=== PATIENT | female | born 1935 | race Caucasian/White ===

== ENCOUNTER → 2016-11-25 | Outpatient (REF) | payer MEDICARE ==
[2016-11-25 11:33] LABS: MEAN CORPUSCULAR HEMOGLOBIN 30.6 pg (27.0-33.0); MEAN CORPUSCULAR HGB CONC 35.2 g/dl (32.0-36.5); MEAN CORPUSCULAR VOLUME 86.9 fl (80.0-96.0); RED CELL DISTRIBUTION WIDTH 13.5 % (11.5-14.5); WHITE BLOOD COUNT 6.6 K/mm3 (4.0-10.0)
[2016-11-25 12:09] LABS: ALBUMIN 3.9 GM/DL (3.2-5.2); ALBUMIN/GLOBULIN RATIO 1.18 (1.00-1.93); BILIRUBIN,TOTAL 0.4 MG/DL (0.2-1.0); CALCIUM LEVEL 9.6 MG/DL (8.8-10.2); CREATININE FOR GFR 1.05 MG/DL (0.55-1.02); TOTAL PROTEIN 7.2 GM/DL (6.4-8.2)
== END ==
LOC: M SFHCLERA 07:52
PROVIDERS: ATTEND Family Medicine
DX: E11.9 Type 2 diabetes mellitus without complications (principal)

== ENCOUNTER → 2016-12-06 | Outpatient (REF) | payer MEDICARE | LOC: M SMT 13:19 | PROVIDERS: ATTEND Nurse Practitioner Family | DX: N39.0 Urinary tract infection, site not specified (principal) ==

== ENCOUNTER → 2016-12-10 | Outpatient (CLI) | payer MEDICARE ==
--- NOTE | 2016-12-10 12:43 | REP ---
RENAL ULTRASOUND: HISTORY: Recurrent urinary tract infection. The right kidney is normal in echogenicity. The right kidney measures 5.5 cm in transverse by 5.3 cm in AP by 11.1 cm in cephalocaudal dimensions. There is mild hydronephrosis. The left kidney is increased in echogenicity. The left kidney measures 4.7 cm in transverse by 5.5 cm in AP by 10.7 cm in cephalocaudal dimensions. A focus of increased echogenicity is present in the lower pole of the left kidney. This measures 1 x 1 x 1.1 cm and may represent and angiomyolipoma. There is no hydronephrosis. There are no filling defects in the urinary bladder. IMPRESSION: 1. Mild right hydronephrosis. 2. There is a 1.1 cm focus of increased echogenicity in the lower pole of the left kidney that may represent an angiomyolipoma. CT of the kidneys may be helpful for further evaluation. Signed by Hernando Alvarado MD 12/10/2016 12:54 P
== END ==
LOC: M SMT 11:12
PROVIDERS: ATTEND Nurse Practitioner Family
DX: N39.0 Urinary tract infection, site not specified (principal)

== ENCOUNTER → 2016-12-16 | Outpatient (CLI) | payer MEDICARE ==
[~2016-12-16] MED LIST: ISOVUE-370 76% 100ML VIAL (Q9967) As Ordered ONE
--- NOTE | 2016-12-16 17:04 | REP ---
CT abdomen and pelvis without and with IV contrast: Without oral contrast. History: Abnormal renal ultrasound December 10, 2016 showed mild right-sided hydronephrosis and an echogenic focus in the lower pole of the left kidney, 1.[address] contrast dose: 100 ml of Isovue [address] findings: Preliminary digital concrete mixer operator radiograph shows clips in the right upper quadrant. Bowel gas pattern is normal. The lung bases are clear on axial CT images. The liver and the spleen are normal in size and homogeneous in texture. No adrenal lesion is seen on either side. No pancreatic abnormality is noted. The gallbladder is surgically absent. There is no evidence of hydronephrosis by CT. The kidneys enhance symmetrically. They are morphologically intact except for the presence of a tiny nonenhancing cyst in the upper pole of the left kidney, which measures 4 mm. In addition, there is a nonenhancing homogeneous fat density nodule in the lower pole of the left kidney, 10 mm in diameter. 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 No other renal mass lesion is observed. Normal caliber aorta is seen. There is a ventral hernia at the level of the umbilicus transmitting omental and mesenteric fat. There is left colonic diverticulosis without CT evidence of diverticulitis. Small and large bowel loops are otherwise unremarkable. No bony destructive lesion is seen. Impression: 1. Post cholecystectomy. 2. 10 mm fat containing benign nodule lower pole left kidney consistent with lipoma or angiomyolipoma. 3. Left colonic diverticulosis. 4. Periumbilical ventral hernia transmitting abdominal fat. Signed by Kerwin Perry MD 12/17/2016 10:15 A
== END ==
LOC: M RAD 16:05
PROVIDERS: ATTEND Nurse Practitioner Family
DX: N28.89 Other specified disorders of kidney and ureter (principal); K57.30 Diverticulosis of large intestine without perforation or abscess without bleeding; K43.9 Ventral hernia without obstruction or gangrene; Z90.49 Acquired absence of other specified parts of digestive tract
CPT/HCPCS: 74178; Q9967

== ENCOUNTER → 2017-01-24 | Outpatient (REF) | payer MEDICARE ==
[2017-01-24 22:21] LABS: MICROSCOPIC INDICATED? NO (NO)
== END ==
LOC: M LABSMT 15:11
PROVIDERS: ATTEND Nurse Practitioner Family
DX: R30.0 Dysuria (principal)

== ENCOUNTER → 2017-02-07 | Outpatient (REF) | payer MEDICARE | LOC: M LABSMT 07:53 | PROVIDERS: ATTEND Nurse Practitioner Family | DX: N39.0 Urinary tract infection, site not specified (principal) ==

== ENCOUNTER → 2017-02-21 | Outpatient (REF) | payer MEDICARE | LOC: M SMT 12:47 | PROVIDERS: ATTEND Nurse Practitioner Family | DX: R35.0 Frequency of micturition (principal) | CPT/HCPCS: 51798; 81001; 87088; 87186; G0463 ==

== ENCOUNTER → 2017-02-28 | Outpatient (REF) | payer MEDICARE ==
[2017-02-28 12:13] LABS: ALBUMIN 3.8 GM/DL (3.2-5.2); ALBUMIN/GLOBULIN RATIO 1.23 (1.00-1.93); ALKALINE PHOSPHATASE 76 U/L (45-117); ALT/SGPT 47 U/L (12-78); ANION GAP 11 MEQ/L (8-16); AST/SGOT 11 U/L (15-37); BILIRUBIN,TOTAL 0.4 MG/DL (0.2-1.0); BLOOD UREA NITROGEN 18 MG/DL (7-18); CALCIUM LEVEL 8.7 MG/DL (8.8-10.2); CARBON DIOXIDE LEVEL 24 MEQ/L (21-32); CHLORIDE LEVEL 105 MEQ/L (98-107); CHOLESTEROL LEVEL 248 MG/DL (<200); CREATININE FOR GFR 0.94 MG/DL (0.55-1.02); GLOMERULAR FILTRATION RATE > 60.0 (>39); GLUCOSE, FASTING 126 MG/DL (83-110); POTASSIUM SERUM 4.9 MEQ/L (3.5-5.1); SODIUM LEVEL 140 MEQ/L (136-145); TOTAL PROTEIN 6.9 GM/DL (6.4-8.2); TRIGLYCERIDES LEVEL 290 MG/DL (<150)
[2017-02-28 12:31] LABS: MEAN CORPUSCULAR HEMOGLOBIN 28.4 pg (27.0-33.0); MEAN CORPUSCULAR HGB CONC 32.1 g/dl (32.0-36.5); MEAN CORPUSCULAR VOLUME 88.5 fl (80.0-96.0); RED CELL DISTRIBUTION WIDTH 13.4 % (11.5-14.5); WHITE BLOOD COUNT 7.6 K/mm3 (4.0-10.0)
== END ==
LOC: M SFHCLERA 07:45
PROVIDERS: ATTEND Nurse Practitioner Family
DX: E03.9 Hypothyroidism, unspecified (principal); E11.9 Type 2 diabetes mellitus without complications; N39.0 Urinary tract infection, site not specified
CPT/HCPCS: 80053; 80061; 84443; 85027; 87086; G0463

== ENCOUNTER → 2017-03-07 | Outpatient (REF) | payer MEDICARE ==
[2017-03-07 18:27] LABS: VITAMIN B12 LEVEL 941 PG/ML
[2017-03-07 18:28] LABS: FOLATE > 24.0 NG/ML
== END ==
LOC: M SFHCLERA 14:37
PROVIDERS: ATTEND Family Medicine
DX: N39.0 Urinary tract infection, site not specified (principal); E11.9 Type 2 diabetes mellitus without complications; R53.83 Other fatigue; Z79.899 Other long term (current) drug therapy

== ENCOUNTER → 2017-03-07 | Outpatient (REF) | payer MEDICARE | LOC: M SMT 16:21 | PROVIDERS: ATTEND Nurse Practitioner Family | DX: E11.9 Type 2 diabetes mellitus without complications (principal); I10 Essential (primary) hypertension; R53.83 Other fatigue | CPT/HCPCS: 82306; 82607; 82746; 83036; 87086; G0463 ==

== ENCOUNTER → 2017-03-21 | Outpatient (CLI) | payer MEDICARE ==
--- NOTE | 2017-03-21 17:13 | REP ---
MRI brain without contrast followed by with contrast: History: Vertigo. Gadolinium enhancement dose: 12.2 mL of intravenous ProHance. Technique: Axial, coronal and sagittal imaging planes utilized. T1 and T2-weighted scans obtained in the usual fashion with and without fat saturation. Sequences include spin-echo, fast spin echo, and diffusion weighted sequences. MRI findings: No bony calvarial destructive lesion is seen. No intraorbital abnormalities observed. There is no MR evidence of significant paranasal sinus disease. There is diffuse moderate cerebral atrophy. There is no evidence of intracranial hemorrhage. Diffusion weighted scans show no evidence of restricted diffusion to suggest acute ischemia. Craniocervical junction and upper cervical cord are normal in appearance. There is some hyperostosis frontalis interna noted bilaterally. This is a normal variant. There are small vessel atherosclerotic changes in the periventricular white matter bilaterally. There is no evidence of intracranial mass lesion, infarct or extra-axial fluid collection. Post contrast enhanced images show enhancement of normal vasculature. No abnormal contrast enhancement is appreciated. Impression: Diffuse moderate atrophy. Small vessel changes. No acute intracranial lesion seen. Signed by Kerwin Perry MD 03/21/2017 06:20 P
== END ==
LOC: M RAD 13:02
PROVIDERS: ATTEND Family Medicine
DX: R42 Dizziness and giddiness (principal)
CPT/HCPCS: 70553; A9576

== ENCOUNTER → 2017-04-18 | Outpatient (CLI) | payer MEDICARE ==
--- NOTE | 2017-04-18 16:38 | REP ---
Soft-tissue ultrasound left neck. History: Tender enlarged mobile lymph node left anterior cervical chain 0.5 cm in size. The patient reports that it is less tender today and no longer palpable. Scanning in the area of the previously noted tenderness shows no evidence of cystic change, soft tissue mass or adenopathy. Scanning lateral to the trachea from the mandible inferior is performed. No mass lesion or adenopathy is seen. Impression: No cyst, mass or adenopathy seen in the soft tissues of the left neck. Signed by Kerwin Perry MD 04/18/2017 04:49 P
== END ==
LOC: M LRY 14:03
PROVIDERS: ATTEND Family Medicine
DX: R59.1 Generalized enlarged lymph nodes (principal)
CPT/HCPCS: 51798; 76536; G0463

== ENCOUNTER → 2017-06-20 | Outpatient (REF) | payer MEDICARE ==
[~2017-06-20] MED LIST changes: +AMLO2.5T PO; +ATEN25TA PO; +HUMA75VL SC; -ISOVUE-370 76% 100ML VIAL (Q9967) As Ordered ONE; +LEVO75TA4 PO; +METH1TAB2 PO
== END ==
LOC: M SMT 13:03
PROVIDERS: ATTEND Nurse Practitioner Women's Health
DX: N39.0 Urinary tract infection, site not specified (principal)
CPT/HCPCS: 81001; 87086; G0463

== ENCOUNTER → 2017-07-26 | Outpatient (REF) | payer MEDICARE ==
[2017-07-26 11:37] LABS: MEAN CORPUSCULAR HEMOGLOBIN 29.2 pg (27.0-33.0); MEAN CORPUSCULAR HGB CONC 33.3 g/dl (32.0-36.5); MEAN CORPUSCULAR VOLUME 87.7 fl (80.0-96.0); RED CELL DISTRIBUTION WIDTH 13.5 % (11.5-14.5); WHITE BLOOD COUNT 9.4 K/mm3 (4.0-10.0)
[2017-07-26 11:38] LABS: INR 0.92
[2017-07-26 11:54] LABS: ALBUMIN 3.8 GM/DL (3.2-5.2); ALBUMIN/GLOBULIN RATIO 1.15 (1.00-1.93); ALKALINE PHOSPHATASE 75 U/L (45-117); ALT/SGPT 53 U/L (12-78); ANION GAP 10 MEQ/L (8-16); AST/SGOT 14 U/L (15-37); BILIRUBIN,TOTAL 0.5 MG/DL (0.2-1.0); BLOOD UREA NITROGEN 23 MG/DL (7-18); CALCIUM LEVEL 9.7 MG/DL (8.8-10.2); CARBON DIOXIDE LEVEL 27 MEQ/L (21-32); CHLORIDE LEVEL 104 MEQ/L (98-107); GLOMERULAR FILTRATION RATE > 60.0 (>39); GLUCOSE, FASTING 121 MG/DL (83-110); POTASSIUM SERUM 4.3 MEQ/L (3.5-5.1); SODIUM LEVEL 141 MEQ/L (136-145); TOTAL PROTEIN 7.1 GM/DL (6.4-8.2)
[2017-07-26 12:02] LABS: FREE T4 1.08 NG/DL (0.76-1.46)
== END ==
LOC: M SFHCLERA 10:05
PROVIDERS: ATTEND Family Medicine
DX: Z01.818 Encounter for other preprocedural examination (principal); I10 Essential (primary) hypertension; E03.9 Hypothyroidism, unspecified; Z51.81 Encounter for therapeutic drug level monitoring; Z79.899 Other long term (current) drug therapy
CPT/HCPCS: 80053; 82043; 83036; 84439; 84443; 85027; 85610; G0463

== ENCOUNTER 2017-08-03 08:38 | Day surgery (SDC) | payer MEDICARE ==
[~2017-08-03] VITALS: Ht 157.5 cm; Wt 62.1 kg
[~2017-08-03 08:38] MED LIST changes: +ACETAMINOPHEN 325 MG TAB PO PRN; -AMLO2.5T PO; +BSS with VANC/TOB/EPI for EYE CASES IR ONE; +CYCLOPENTOLATE 2% OPHTH SOLN 2ML BTL OS ONE; +HEALON DUET (HEALON 10MG/ML 0.55ML & HEALON ENDOCOAT 30MG/ML 0.85ML) As Ordered ONE; +LIDOCAINE 1% SDV 5 ML VIAL As Ordered ONE; +LIDOCAINE 3.5 % 1ML OPHTH TOPICAL GEL OU ONE; +OFLOXACIN 0.3 % (OCUFLOX) OPTH SOL 5ML OS ONE; +PHENYLEPHRINE 2.5% OPHTH SOL 2ML OS ONE; +POVIDONE-IODINE 5% OPHTH PREP SOL 30ML As Ordered ONE; +PROPARACAINE 0.5% OPHTH SOL 15ML OS PRN; +TRIAMCINOLONE PRES FR 40 MG/ML 1ML(TRIESENCE)(OR EYE ONLY)(J3300 PER 1MG) As Ordered ONE; +TROPICAMIDE 1% OPHTH SOLN 2ML OS ONE
[2017-08-03] MEDS ORDERED: LR 500 ML IV ONE (09:00)
[2017-08-03] MEDS ORDERED: MIDAZOLAM INJ 2 MG/2 ML VIAL (J2250) As Ordered ONE (09:45)
[2017-08-03] MEDS ORDERED: fentaNYL 100 MCG/2 ML INJECTION (J3010) As Ordered ONE (09:45)
[2017-08-03] MEDS ORDERED: CEFUROXIME 1MG/0.1ML INTRACAMERAL INJ As Ordered ONE (10:01)
[2017-08-03 10:30] VITALS: BP 186/80
[2017-08-03] MEDS ORDERED: AcetaZOLAMIDE 500 MG ER CAP PO ONE (10:30)
[2017-08-03] MEDS ORDERED: TRIMETHOBENZAMIDE 300 MG CAP PO PRN (10:30)
[2017-08-03] MEDS ORDERED: KETOROLAC 0.5% OPHTH SOLN OS ONE (10:30)
--- NOTE | 2017-08-03 11:46 | RO ---
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 PROCEDURE: Phacoemulsification with intraocular lens implantation of Hoya, power 18 diopter, and also placement of a Malyugin ring, which was 7 mm. SURGEON: Danielle Huff MD NEW HOME SALES CONSULTANT: None. ANESTHESIA: Monitored anesthesia care (MAC). COMPLICATIONS: None. DESCRIPTION OF PROCEDURE: Patient was brought to the operating room, laid in supine position. The left eye was prepped and draped in a sterile fashion for ophthalmic surgery, and a lid speculum was placed. Sideport incision was then made, and EndoCoat was injected into the anterior chamber. This was followed by a temporal clear corneal incision with a 2.5 mm keratome and placement of the Malyugin ring to dilate the pupil with the help of the introducer. Capsulorrhexis was then done, followed by hydrodissection and phacoemulsification in a [id number] method within the capsular bag. Excess cortical material was then aspirated and Healon injected into the capsular bag, followed by insertion of the intraocular lens. Excess viscoelastic was aspirated but, prior to that, Malyugin ring was removed. Wound was hydrated. Intracameral moxifloxacin and sub-Tenon triamcinolone were given at the end of the case. Patient was returned to the recovery room after removing the speculum. Edited: [facility] 08/05/2017 1515
== END 2017-08-03 10:49 | disposition home or self-care (01) ==
LOC: M SDC 08:38
PROVIDERS: ATTEND Ophthalmology
DX: H26.9 Unspecified cataract (principal); H57.03 Miosis; T88.59XD Other complications of anesthesia, subsequent encounter; I49.9 Cardiac arrhythmia, unspecified; I10 Essential (primary) hypertension; E10.9 Type 1 diabetes mellitus without complications; E03.9 Hypothyroidism, unspecified; K21.9 Gastro-esophageal reflux disease without esophagitis; R06.83 Snoring; G47.9 Sleep disorder, unspecified; Z88.0 Allergy status to penicillin; Z88.1 Allergy status to other antibiotic agents; Z88.8 Allergy status to other drugs, medicaments and biological substances; Z79.899 Other long term (current) drug therapy; Z79.4 Long term (current) use of insulin; Z90.710 Acquired absence of both cervix and uterus
CPT/HCPCS: 66982; J2250; J3010; J3300; V2632

== ENCOUNTER → 2017-08-10 | Outpatient (REF) | payer MEDICARE ==
[~2017-08-10] MED LIST changes: -ACETAMINOPHEN 325 MG TAB PO PRN; +AMLO2.5T PO; -BSS with VANC/TOB/EPI for EYE CASES IR ONE; -CYCLOPENTOLATE 2% OPHTH SOLN 2ML BTL OS ONE; -HEALON DUET (HEALON 10MG/ML 0.55ML & HEALON ENDOCOAT 30MG/ML 0.85ML) As Ordered ONE; -LIDOCAINE 1% SDV 5 ML VIAL As Ordered ONE; -LIDOCAINE 3.5 % 1ML OPHTH TOPICAL GEL OU ONE; -OFLOXACIN 0.3 % (OCUFLOX) OPTH SOL 5ML OS ONE; -PHENYLEPHRINE 2.5% OPHTH SOL 2ML OS ONE; -POVIDONE-IODINE 5% OPHTH PREP SOL 30ML As Ordered ONE; -PROPARACAINE 0.5% OPHTH SOL 15ML OS PRN; -TRIAMCINOLONE PRES FR 40 MG/ML 1ML(TRIESENCE)(OR EYE ONLY)(J3300 PER 1MG) As Ordered ONE; -TROPICAMIDE 1% OPHTH SOLN 2ML OS ONE
[2017-08-10 18:38] LABS: YEAST LIKE CELL URINE AUTO MODERATE
== END ==
LOC: M LABSMT 14:12
PROVIDERS: ATTEND Family Medicine
DX: R30.0 Dysuria (principal)

== ENCOUNTER → 2017-08-16 | Outpatient (REF) | payer MEDICARE ==
[2017-08-16 12:23] LABS: CALCIUM OXALATE CRYSTALS SMALL
[2017-08-16 12:43] LABS: MICROSCOPIC INDICATED? NO (NO)
== END ==
LOC: M SFHCLERA 10:25
PROVIDERS: ATTEND Family Medicine
DX: R35.0 Frequency of micturition (principal)
CPT/HCPCS: 81001; 87086; G0463

== ENCOUNTER 2017-08-24 09:51 | Day surgery (SDC) | payer MEDICARE ==
[~2017-08-24 09:51] MED LIST changes: +ACETAMINOPHEN 325 MG TAB PO PRN; -AMLO2.5T PO; +CYCLOPENTOLATE 2% OPHTH SOLN 2ML BTL OD ONE; +LIDOCAINE 3.5 % 1ML OPHTH TOPICAL GEL OU ONE; +MIDAZOLAM INJ 2 MG/2 ML VIAL (J2250) As Ordered ONE; +OFLOXACIN 0.3 % (OCUFLOX) OPTH SOL 5ML OD ONE; +PHENYLEPHRINE 2.5% OPHTH SOL 2ML OD ONE; +TROPICAMIDE 1% OPHTH SOLN 2ML OD ONE; +fentaNYL 100 MCG/2 ML INJECTION (J3010) As Ordered ONE
[2017-08-24] MEDS ORDERED: LR 1,000 ML IV SCH (10:15)
[2017-08-24] MEDS ORDERED: AMLO2.5T PO (11:19)
[2017-08-24] MEDS ORDERED: TRIAMCINOLONE PRES FR 40 MG/ML 1ML(TRIESENCE)(OR EYE ONLY)(J3300 PER 1MG) As Ordered ONE (12:25)
[2017-08-24] MEDS ORDERED: LIDOCAINE 1% SDV 5 ML VIAL As Ordered ONE (12:25)
[2017-08-24] MEDS ORDERED: MOXIFLOXACIN IN BSS 0.25MG/0.25ML INTRACAMERAL INJ (OR EYE ONLY)(J2280) As Ordered ONE (12:25)
[2017-08-24] MEDS ORDERED: POVIDONE-IODINE 5% OPHTH PREP SOL 30ML As Ordered ONE (12:25)
[2017-08-24] MEDS ORDERED: HEALON DUET (HEALON 10MG/ML 0.55ML & HEALON ENDOCOAT 30MG/ML 0.85ML) As Ordered ONE (12:25)
[2017-08-24 13:35] VITALS: BP 180/81
[2017-08-24] MEDS ORDERED: AcetaZOLAMIDE 500 MG ER CAP As Ordered ONE (13:46)
[2017-08-24] MEDS ORDERED: AcetaZOLAMIDE 500 MG ER CAP PO ONE (14:00)
[2017-08-24] MEDS ORDERED: TRIMETHOBENZAMIDE 300 MG CAP PO PRN (14:00)
--- NOTE | 2017-08-24 22:14 | RO ---
DATE OF PROCEDURE: 08/24/2017 PREPROCEDURE DIAGNOSIS: Cataract of right eye. POSTPROCEDURE DIAGNOSIS: Cataract of right eye. PROCEDURE: Femtosecond laser and phacoemulsification of the intraocular lens with lens implantation right eye. Intraocular lens power used was Hoya, model 250, power 18 diopter. SURGEON: Danielle Huff MD MARKING ROOM SUPERVISOR: None. ANESTHESIA: Local IV standby. FINDINGS: Cataract of right eye. COMPLICATIONS: None. DESCRIPTION OF PROCEDURE: The patient was brought to the operating room and laid in supine position. A lid speculum was placed, and patient was brought under the femtosecond laser. After the satisfactory placement of the patient interface, primary incision, secondary incision, and arcuate incisions with lens fragmentation was done without any complication per plan. The patients interface was then removed and lid speculum removed. Patient was placed under the microscope. The eye was prepped and draped in a sterile fashion for ophthalmic surgery. Lid speculum was placed. The secondary incision was opened, and EndoCoat was injected into the anterior chamber. The temporal clear corneal incision was then opened and capsulorrhexis removed, followed by hydrodissection. This was followed by phacoemulsification of the lens within the capsular bag. Cortical material was then aspirated, and Healon was injected into the capsular bag. Intraocular lens was then placed. Excess Healon was aspirated. Wound was hydrated. The lid speculum was removed, and patient was returned to the recovery room in stable condition. Addendum: Femtosecond laser was not able to make all the incisions according to plan.
== END 2017-08-24 13:40 | disposition home or self-care (01) ==
LOC: M SDC 09:51
PROVIDERS: ATTEND Ophthalmology
DX: H26.9 Unspecified cataract (principal); E11.9 Type 2 diabetes mellitus without complications; I10 Essential (primary) hypertension; E03.9 Hypothyroidism, unspecified; N39.0 Urinary tract infection, site not specified; T88.59XD Other complications of anesthesia, subsequent encounter; I49.9 Cardiac arrhythmia, unspecified; K21.9 Gastro-esophageal reflux disease without esophagitis; R06.83 Snoring; Z88.0 Allergy status to penicillin; Z88.1 Allergy status to other antibiotic agents; Z88.8 Allergy status to other drugs, medicaments and biological substances; Z79.899 Other long term (current) drug therapy; Z79.4 Long term (current) use of insulin; Z90.710 Acquired absence of both cervix and uterus; Z78.0 Asymptomatic menopausal state
CPT/HCPCS: 66984; J2250; J2280; J3010; J3300; V2632

== ENCOUNTER → 2017-09-20 | Outpatient (REF) | payer MEDICARE ==
[~2017-09-20] MED LIST changes: -ACETAMINOPHEN 325 MG TAB PO PRN; +AMLO2.5T PO; -CYCLOPENTOLATE 2% OPHTH SOLN 2ML BTL OD ONE; -LIDOCAINE 3.5 % 1ML OPHTH TOPICAL GEL OU ONE; -MIDAZOLAM INJ 2 MG/2 ML VIAL (J2250) As Ordered ONE; -OFLOXACIN 0.3 % (OCUFLOX) OPTH SOL 5ML OD ONE; -PHENYLEPHRINE 2.5% OPHTH SOL 2ML OD ONE; -TROPICAMIDE 1% OPHTH SOLN 2ML OD ONE; -fentaNYL 100 MCG/2 ML INJECTION (J3010) As Ordered ONE
[2017-09-21 12:45] LABS: MEAN CORPUSCULAR HEMOGLOBIN 29.1 pg (27.0-33.0); MEAN CORPUSCULAR HGB CONC 33.2 g/dl (32.0-36.5); MEAN CORPUSCULAR VOLUME 87.7 fl (80.0-96.0); RED CELL DISTRIBUTION WIDTH 14.5 % (11.5-14.5); WHITE BLOOD COUNT 10.6 10^3/uL (4.0-10.0)
[2017-09-21 12:48] LABS: CBCMD ORDERED? YES (YES)
[2017-09-21 13:20] LABS: EOSINOPHILS 2 % (0-5)
[2017-09-23 00:06] LABS: Lyme Disease IgG/IgM Antibodie <0.91 ISR (0.00-0.90); Lyme Disease IgM Ab Quantitati <0.80 index (0.00-0.79)
== END ==
LOC: M SFHCLERA 19:39
PROVIDERS: ATTEND Physician Assistant
DX: S30.861A Insect bite (nonvenomous) of abdominal wall, initial encounter (principal); W57.XXXA Bitten or stung by nonvenomous insect and other nonvenomous arthropods, initial encounter; R21 Rash and other nonspecific skin eruption; X58.XXXA Exposure to other specified factors, initial encounter; Y92.9 Unspecified place or not applicable; Y93.9 Activity, unspecified
CPT/HCPCS: 85007; 85027; 86617; G0463

== ENCOUNTER → 2017-11-01 | Outpatient (REF) | payer MEDICARE ==
[2017-11-01 11:21] LABS: MEAN CORPUSCULAR HGB CONC 33.1 g/dl (32.0-36.5); MEAN CORPUSCULAR VOLUME 87.7 fl (80.0-96.0); PLATELET COUNT, AUTOMATED 330 10^3/uL (150-450); RED CELL DISTRIBUTION WIDTH 14.1 % (11.5-14.5)
== END ==
LOC: M SFHCLERA 10:05
PROVIDERS: ATTEND Family Medicine
DX: R00.2 Palpitations (principal); E11.9 Type 2 diabetes mellitus without complications; I10 Essential (primary) hypertension

== ENCOUNTER → 2017-11-15 | Outpatient (REF) | payer OTHER | LOC: M SFHCLERA 13:04 | DX: R30.0 Dysuria (principal) | CPT/HCPCS: 87088; 87186 ==

== ENCOUNTER → 2017-12-01 | Outpatient (CLI) | payer OTHER | LOC: M RAD 11:32 | DX: I10 Essential (primary) hypertension (principal) | CPT/HCPCS: 71046 ==

== ENCOUNTER → 2017-12-26 | Outpatient (REF) | payer OTHER | LOC: M SFHCLERA 08:23 | DX: C44.712 Basal cell carcinoma of skin of right lower limb, including hip (principal) | CPT/HCPCS: 88305 ==

== ENCOUNTER → 2018-02-08 | Outpatient (REF) | payer OTHER | LOC: M SFHCLERA 09:24 | DX: R30.0 Dysuria (principal) | CPT/HCPCS: 87186 ==

== ENCOUNTER 2018-03-09 09:00 | Emergency (ER) | payer OTHER ==
[2018-03-09] MEDS: ACETAMINOPH W/CODEINE #3 TAB UD PO (09:40)
== END 2018-03-09 11:13 | disposition home or self-care (01) ==
LOC: M ED 09:00
DX: M16.11 Unilateral primary osteoarthritis, right hip (principal); M51.17 Intervertebral disc disorders with radiculopathy, lumbosacral region; I10 Essential (primary) hypertension; Z79.82 Long term (current) use of aspirin; Z79.4 Long term (current) use of insulin; Z79.899 Other long term (current) drug therapy; Z88.8 Allergy status to other drugs, medicaments and biological substances; Z88.1 Allergy status to other antibiotic agents; Z88.0 Allergy status to penicillin
CPT/HCPCS: 72110

== ENCOUNTER → 2018-03-20 | Outpatient (REF) | payer OTHER ==
[2018-03-20 12:16] LABS: ESTIMATED AVERAGE GLUCOSE 189 MG/DL (60-110); HEMOGLOBIN A1c 8.2 %
[2018-03-20 12:28] LABS: ANION GAP 8 MEQ/L (8-16); BLOOD UREA NITROGEN 19 MG/DL (7-18); CALCIUM LEVEL 9.5 MG/DL (8.8-10.2); CARBON DIOXIDE LEVEL 28 MEQ/L (21-32); CHLORIDE LEVEL 104 MEQ/L (98-107); CREATININE FOR GFR 0.69 MG/DL (0.55-1.30); GLOMERULAR FILTRATION RATE > 60.0 (>32); GLUCOSE, FASTING 166 MG/DL (70-100); POTASSIUM SERUM 4.7 MEQ/L (3.5-5.1); SODIUM LEVEL 140 MEQ/L (136-145)
== END ==
LOC: M SFHCLERA 10:10
DX: I10 Essential (primary) hypertension (principal); E11.9 Type 2 diabetes mellitus without complications
CPT/HCPCS: 83036

== ENCOUNTER → 2018-05-08 | Outpatient (REF) | payer OTHER | LOC: M SFHCLERA 09:07 | DX: R30.0 Dysuria (principal) | CPT/HCPCS: 87088; 87186 ==

== ENCOUNTER → 2018-07-04 | Outpatient (REF) | payer OTHER ==
[2018-07-04 12:05] LABS: ESTIMATED AVERAGE GLUCOSE 163 MG/DL (60-110); HEMOGLOBIN A1c 7.3 %
[2018-07-04 12:15] LABS: CREATININE, URINE 37.3 MG/DL; MALB URINE SIEMENS 30.8 MG/L; MAU/CREAT RATIO 82.5 MCG/MG (0.0-30.0)
== END ==
LOC: M SFHCLERA 09:01
DX: E11.9 Type 2 diabetes mellitus without complications (principal)
CPT/HCPCS: 83036

== ENCOUNTER → 2018-10-18 | Outpatient (REF) | payer OTHER | LOC: M SFHCLERA 10:10 | DX: R30.0 Dysuria (principal) | CPT/HCPCS: 87186 ==

== ENCOUNTER → 2018-12-04 | Outpatient (REF) | payer MEDICARE ==
[~2018-12-04] MED LIST changes: +ACET30TAB PO; +ALEV220C2 PO; -AMLO2.5T PO; +AMLO2.5T3 PO; +ASPI81TA85 PO; +CAPS0.1C2 EX; +METH-855 PO; -METH1TAB2 PO
[2018-12-04 20:52] LABS: BLOOD UREA NITROGEN 23 MG/DL (7-18); CALCIUM LEVEL 9.4 MG/DL (8.8-10.2); CARBON DIOXIDE LEVEL 28 MEQ/L (21-32); CHLORIDE LEVEL 104 MEQ/L (98-107); CREATININE FOR GFR 0.75 MG/DL (0.55-1.30); GLOMERULAR FILTRATION RATE > 60.0 (>32); GLUCOSE, FASTING 107 MG/DL (70-100); POTASSIUM SERUM 4.9 MEQ/L (3.5-5.1); SODIUM LEVEL 140 MEQ/L (136-145)
[2018-12-04 20:54] LABS: HEMOGLOBIN A1c 7.4 %
== END ==
LOC: M SFHCLERA 15:33
PROVIDERS: ATTEND Family Medicine
DX: I10 Essential (primary) hypertension (principal); E11.9 Type 2 diabetes mellitus without complications; E03.9 Hypothyroidism, unspecified
CPT/HCPCS: 80048; 83036; 84443; G0463

== ENCOUNTER → 2019-01-15 | Outpatient (REF) | payer MEDICARE ==
[2019-01-15 17:28] LABS: BASO # 0.1 10^3/uL (0.0-0.2); BASO % 0.4 % (0.0-1.0); EOS # 0.3 10^3/uL (0.0-0.50); EOS % 2.5 % (0.0-3.0); HEMATOCRIT 41.2 % (36.0-47.0); HEMOGLOBIN 13.5 g/dl (12.0-15.5); LYMPH # 2.5 10^3/uL (1.5-4.5); LYMPH % 21.1 % (24.0-44.0); MEAN CORPUSCULAR HEMOGLOBIN 27.6 pg (27.0-33.0); MEAN CORPUSCULAR HGB CONC 32.8 g/dl (32.0-36.5); MEAN CORPUSCULAR VOLUME 84.1 fl (80.0-96.0); MONO % 8.4 % (0.0-5.0); NEUTROPHILS % 67.4 % (36.0-66.0); PLATELET COUNT, AUTOMATED 377 10^3/uL (150-450); WHITE BLOOD COUNT 11.9 10^3/uL (4.0-10.0)
[2019-01-15 18:06] LABS: ALBUMIN 3.6 GM/DL (3.2-5.2); ALT/SGPT 36 U/L (12-78); BILIRUBIN,TOTAL 0.4 MG/DL (0.2-1.0); BLOOD UREA NITROGEN 24 MG/DL (7-18); C REACTIVE PROTEIN QUANTITATIV 3.92 MG/DL (0.00-0.30); CARBON DIOXIDE LEVEL 28 MEQ/L (21-32); CHLORIDE LEVEL 105 MEQ/L (98-107); CREATININE FOR GFR 0.73 MG/DL (0.55-1.30); GLOMERULAR FILTRATION RATE > 60.0 (>32); GLUCOSE, FASTING 115 MG/DL (70-100); POTASSIUM SERUM 4.5 MEQ/L (3.5-5.1); SODIUM LEVEL 141 MEQ/L (136-145); TOTAL PROTEIN 7.5 GM/DL (6.4-8.2)
[2019-01-15 18:28] LABS: ERYTHROCYTE SEDIMENTATION RATE 55 mm/hr (0-30)
[2019-01-18 00:07] LABS: ANA (HEP2) Negative (.); Lyme Disease IgG/IgM Antibodie <0.91 ISR (0.00-0.90); Lyme Disease IgM Ab Quantitati <0.80 index (0.00-0.79)
== END ==
LOC: M SFHCLERA 10:36
PROVIDERS: ATTEND Family Medicine
DX: M79.10 Myalgia, unspecified site (principal); I10 Essential (primary) hypertension; L98.9 Disorder of the skin and subcutaneous tissue, unspecified
CPT/HCPCS: 80053; 85025; 85652; 86038; 86140; 86617; 87086; G0463

== ENCOUNTER → 2019-01-22 | Outpatient (REF) | payer MEDICARE | LOC: M SFHCLERA 09:04 | PROVIDERS: ATTEND Dermatology | DX: C44.329 Squamous cell carcinoma of skin of other parts of face (principal) ==

== ENCOUNTER → 2019-01-29 | Outpatient (CLI) | payer MEDICARE ==
[~2019-01-29] MED LIST changes: +ACET-716 PO; -ACET30TAB PO
--- NOTE | 2019-01-30 03:57 | REP ---
Clinical: Myalgia and lower back pain. Technique: AP, lateral, bilateral oblique and coned-down views of the lumbosacral spine. Comparison: 03/09/2018 Findings: Advanced age-related osteopenia and multilevel degenerative disc osteophyte complexes are appreciated. Findings include osteophytosis, endplate sclerosis and mild disc space narrowing and have not changed from prior examination. Grade 1 anterolisthesis at the L4-5 level again noted and unchanged. No acute fracture / compression injury or subluxation identified. Impression: Advanced chronic stable osteopenia and multilevel degenerative changes. No acute fracture / compression injury or subluxation. Electronically Signed by Best Espinoza MD 01/30/2019 03:50 A
--- NOTE | 2019-01-30 04:42 | REP ---
Clinical: Myalgia. Technique: Neutral and frog lateral views of the right hip. Findings: Moderate degenerative changes include joint space narrowing with subtle cortical irregularity to the acetabular rim. No periarticular calcifications or loose bodies identified. No acute fracture dislocation. Impression: Moderate degenerative changes. Electronically Signed by Best Espinoza MD 01/30/2019 04:33 A
== END ==
LOC: M LRY 09:26
PROVIDERS: ATTEND Family Medicine
DX: M43.16 Spondylolisthesis, lumbar region (principal); M85.88 Other specified disorders of bone density and structure, other site; M51.36 Other intervertebral disc degeneration, lumbar region; M25.78 Osteophyte, vertebrae; M16.11 Unilateral primary osteoarthritis, right hip; M79.10 Myalgia, unspecified site
CPT/HCPCS: 72110; 73502; G0463

== ENCOUNTER → 2019-02-22 | Outpatient (REF) | payer MEDICARE ==
[2019-02-22 12:19] LABS: BASO # 0.1 10^3/uL (0.0-0.2); BASO % 0.5 % (0.0-1.0); EOS # 0.4 10^3/uL (0.0-0.50); HEMATOCRIT 42.6 % (36.0-47.0); HEMOGLOBIN 13.5 g/dl (12.0-15.5); LYMPH # 2.7 10^3/uL (1.5-4.5); LYMPH % 21.1 % (24.0-44.0); MEAN CORPUSCULAR HEMOGLOBIN 26.9 pg (27.0-33.0); MEAN CORPUSCULAR HGB CONC 31.7 g/dl (32.0-36.5); MONO % 7.5 % (0.0-5.0); NEUTROPHILS # 8.7 10^3/uL (1.8-7.7); NEUTROPHILS % 67.5 % (36.0-66.0); PLATELET COUNT, AUTOMATED 375 10^3/uL (150-450); RED BLOOD COUNT 5.01 10^6/uL (4.00-5.40); WHITE BLOOD COUNT 12.9 10^3/uL (4.0-10.0)
[2019-02-22 12:29] LABS: CHOLESTEROL LEVEL 262 MG/DL (<200); CHOLESTEROL RISK RATIO 5.822 (<5); HDL CHOLESTEROL 45 MG/DL (>40); NON-HDL-C 217 MG/DL; TRIGLYCERIDES LEVEL 445 MG/DL (<150)
[2019-02-22 12:43] LABS: HEMOGLOBIN A1c 7.3 %
== END ==
LOC: M SFHCLERA 09:36
PROVIDERS: ATTEND Family Medicine
DX: E11.9 Type 2 diabetes mellitus without complications (principal)
CPT/HCPCS: 80061; 83036; 85025; G0463

== ENCOUNTER → 2019-04-02 | Outpatient (REF) | payer MEDICARE ==
[2019-04-02 11:59] LABS: BASO # 0.1 10^3/uL (0.0-0.2); BASO % 0.5 % (0.0-1.0); EOS # 0.3 10^3/uL (0.0-0.50); EOS % 2.7 % (0.0-3.0); HEMATOCRIT 41.4 % (36.0-47.0); HEMOGLOBIN 13.1 g/dl (12.0-15.5); LYMPH # 2.2 10^3/uL (1.5-4.5); LYMPH % 22.7 % (24.0-44.0); MEAN CORPUSCULAR HEMOGLOBIN 26.8 pg (27.0-33.0); MEAN CORPUSCULAR HGB CONC 31.6 g/dl (32.0-36.5); MEAN CORPUSCULAR VOLUME 84.7 fl (80.0-96.0); MONO # 0.6 10^3/uL (0.0-0.8); MONO % 5.9 % (0.0-5.0); NEUTROPHILS # 6.7 10^3/uL (1.8-7.7); NEUTROPHILS % 67.9 % (36.0-66.0); PLATELET COUNT, AUTOMATED 370 10^3/uL (150-450); RED BLOOD COUNT 4.89 10^6/uL (4.00-5.40); WHITE BLOOD COUNT 9.9 10^3/uL (4.0-10.0)
[2019-04-02 12:23] LABS: ALBUMIN 3.8 GM/DL (3.2-5.2); BILIRUBIN,TOTAL 0.4 MG/DL (0.2-1.0); CALCIUM LEVEL 9.4 MG/DL (8.8-10.2); CREATININE FOR GFR 1.02 MG/DL (0.55-1.30); FREE T4 1.18 NG/DL (0.76-1.46); GLOMERULAR FILTRATION RATE 55.4 (>32); POTASSIUM SERUM 4.7 MEQ/L (3.5-5.1); THYROID STIMULATING HORMONE 1.46 uIU/ML (0.358-3.740); TOTAL PROTEIN 7.8 GM/DL (6.4-8.2)
== END ==
LOC: M SFHCLERA 08:38
PROVIDERS: ATTEND Family Medicine
DX: D72.829 Elevated white blood cell count, unspecified (principal); Z79.82 Long term (current) use of aspirin; Z79.899 Other long term (current) drug therapy

== ENCOUNTER → 2019-05-24 | Outpatient (REF) | payer MEDICARE ==
[2019-05-24 13:10] LABS: HEMOGLOBIN A1c 6.8 %
== END ==
LOC: M SFHCLERA 09:30
PROVIDERS: ATTEND Family Medicine
DX: E11.9 Type 2 diabetes mellitus without complications (principal); E03.9 Hypothyroidism, unspecified
CPT/HCPCS: 83036; 84443; G0463